=== PATIENT | female | born 1945 | race Caucasian/White ===

== ENCOUNTER 2019-11-09 23:52 | Inpatient (IN) | payer MEDICARE, BC ==
[~2019-11-09] VITALS: Ht 172.7 cm; Wt 75.9 kg
[2019-11-10] VITALS (11 sets, daily range): BP systolic 110–157; BP diastolic 60–84
[2019-11-10] MEDS ORDERED: MONT10TA21 PO (00:35)
[2019-11-10] MEDS ORDERED: OMEP40CA13 PO (00:35)
[2019-11-10] MEDS ORDERED: NIFE10CA PO (00:35)
[2019-11-10] MEDS ORDERED: heparin 10,000 units/1 ML INJ IV PRN (01:25)
[2019-11-10] MEDS: heparin 25,000 UNIT/250ml bag 250 ML IV SCH ×2 (02:08→09:23)
[2019-11-10] MEDS ORDERED: magnesium hydroxide 30ml (MOM) UD suspension PO PRN (02:45)
[2019-11-10] MEDS ORDERED: acetaminophen 325mg tablet PO PRN (02:45)
[2019-11-10] MEDS ORDERED: ondansetron/PF 4mg/2ml inj IV PRN (02:45)
[2019-11-10] MEDS ORDERED: mag hydrox/Alum hydrox/simeth 30ml oral suspension PO PRN (02:45)
[2019-11-10] MEDS ORDERED: metoprolol tartrate 12.5mg (1/2 tablet) PO ONE (02:50)
--- NOTE | 2019-11-10 03:25 | NUR ---
pt arrived to floor with all belongings, pt ambulated from [place] into bed, tele attached, VS stable, pt oriented to floor.
[2019-11-10] MEDS: normal saline 1000ml 1,000 ML IV SCH ×2 (04:31→21:02)
--- NOTE | 2019-11-10 06:00 | NUR ---
Problems reprioritized. Patient report given, questions answered & plan of care reviewed with Olga PRESLEY.
--- NOTE | 2019-11-10 06:04 | NUR ---
Patient in room PCU 3013. I have received report from FERNANDEZ Rangel and had the opportunity to ask questions and assume patient care. Pt resting comfortably at change of shift, heparin gtt running per MD orders.
[2019-11-10 06:06] LABS: ALANINE AMINOTRANSFERASE 37 U/L (12-78); ALBUMIN 4.2 G/DL (3.4-5.0); ALKALINE PHOSPHATASE 74 IU/L (46-116); ANION GAP 9 (8-16); ASPARTATE AMINO TRANSFERASE 24 U/L (10-37); BILIRUBIN,TOTAL 0.6 MG/DL (0.1-1.0); BLOOD UREA NITROGEN 13 MG/DL (7-18); BUN/CREATININE RATIO 18.6 (6.6-38.0); CALCIUM 9.7 MG/DL (8.5-10.1); CHLORIDE 99 MMOL/L (99-107); GLUCOSE 88 MG/DL (70-104); POTASSIUM 3.4 MMOL/L (3.5-5.1); SODIUM 135 MMOL/L (135-145); TOTAL CARBON DIOXIDE 26.9 MMOL/L (24-32); TOTAL PROTEIN 8.5 G/DL (6.4-8.2); eGFR 82 ML/MIN
--- NOTE | 2019-11-10 12:05 | NUR ---
Paged Dr Christina PAGER ID: [phone] MESSAGE: Re: Iliana Valles [id number] Pt is hungry and thirsty, currently NPO, she's had positive trops, is there a plan to have a Rachel or consult with rigger supervisor? Please advise. Thanks Olga Cagle [phone]
--- NOTE | 2019-11-10 13:07 | NUR ---
Called Dr Ackerman's answering service per Dr Christina's request to notify him of pt needing to consulted.
[2019-11-10] MEDS ORDERED: potassium Cl 20 mEq SR tablet PO PRN ×2 (13:15)
[2019-11-10] MEDS ORDERED: potassium CL 10mEq/100ml bag 100 ML IV PRN (13:15)
[2019-11-10] MEDS ORDERED: magnesium Cl slow-release 64mg tablet PO PRN (13:15)
[2019-11-10] MEDS ORDERED: magnesium 4gm in 100ml NS 100 ML IV PRN (13:15)
[2019-11-10] MEDS ORDERED: NIFE90TA44 PO (13:52)
[2019-11-10] MEDS ORDERED: OMEP-50 PO (13:52)
[2019-11-10 14:05] LABS: CHOL/HDL RATIO 2.6 (0.00-4.99); CHOLESTEROL 270 MG/DL (0-200); HDL CHOLESTEROL 105 MG/DL (35-60); LDL CHOLESTEROL 145 MG/DL (50-100); TRIGLYCERIDES 89 MG/DL (20-135)
[2019-11-10] MEDS ORDERED: LIDOcaine/PRILOcaine 5gm cream TP ONE (15:25)
[2019-11-10] MEDS ORDERED: famotidine 20mg tablet PO ONE (15:50)
[2019-11-10] MEDS ORDERED: diphenhydrAMINE 25mg capsule PO ONE (15:50)
[2019-11-10] MEDS ORDERED: iohexol 350 MG/ML 50ML vial IV ONE ×2 (15:54→16:46)
[2019-11-10] MEDS ORDERED: fentaNYL/PF 50MCG/1 ML 2ML syringe ONE (15:54)
[2019-11-10] MEDS ORDERED: verapamil 2.5 mg/ml inj IV ONE (15:54)
[2019-11-10] MEDS ORDERED: iohexol 350MG/ML 100ml bottle IV ONE (15:54)
[2019-11-10] MEDS ORDERED: midazolam 2 mg/2 ml injection ONE (15:54)
[2019-11-10] MEDS ORDERED: heparin 1,000unit/ml 10ml vial 10 ML ONE (15:54)
[2019-11-10] MEDS ORDERED: LIDOcaine 1% (10mg/ml)w/preservative injection 20ml MDV ONE (15:54)
[2019-11-10] MEDS ORDERED: nitroGLYCERIN-Tridil 50MG/D5W 250 ML IV ONE (15:54)
[2019-11-10] MEDS ORDERED: hydrocortisone sod succ/PF 100mg/2ml inj. ONE (16:39)
[2019-11-10] MEDS ORDERED: normal saline 1000ml 1,000 ML IV ONE (17:40)
--- NOTE | 2019-11-10 18:49 | NUR ---
Problems reprioritized. Patient report given, questions answered & plan of care reviewed with FERNANDEZ Reynaga. Pt eating dinner at change of shift. Informed nurse pt came back from heart cath at 1730, 1L NS to finish at 150ml/hr, then switch to NS at 100ml/hr. Radial approach to have air released Q15 mins and to continue post op vitals and radial pulse checks. All pt needs met at this time.
[2019-11-10] MEDS: K and/or MAG REPLACEMENT MC SCH (20:00)
[2019-11-10] MEDS: carVEDilol 3.125mg tablet PO SCH (20:00)
[2019-11-11 03:00] VITALS: BP 114/67
[2019-11-11 05:20] LABS: BASOPHILS % (AUTO) 0.7 % (0-1); EOSINOPHILS % (AUTO) 0.6 % (0-6); HEMATOCRIT 37.4 % (35.0-45.0); HEMOGLOBIN 12.9 g/dl (12.0-16.0); LYMPHOCYTES # (AUTO) 1.9 X10'3 (1.1-4.8); LYMPHOCYTES % (AUTO) 27.6 % (21-51); MEAN CORPUSCULAR HEMOGLOBIN 31.7 PG (27.0-31.0); MEAN CORPUSCULAR HGB CONC 34.6 g/dL (33.0-36.5); MEAN CORPUSCULAR VOLUME 91.6 FL (78-98); MEAN PLATELET VOLUME 8.1 FL (7.4-10.4); MONOCYTES # (AUTO) 0.7 X10'3 (0-0.9); MONOCYTES % (AUTO) 10.5 % (2-12); NEUTROPHILS # (AUTO) 4.1 X10'3 (1.8-7.7); NEUTROPHILS % (AUTO) 60.6 % (42-75); PLATELET COUNT 266 X10'3 (140-440); RED BLOOD COUNT 4.08 X10'6 (4.20-5.60); RED CELL DISTRIBUTION WIDTH 13.4 % (11.5-14.5); WHITE BLOOD COUNT 6.7 X10'3 (4.5-11.0)
[2019-11-11 05:51] LABS: ALANINE AMINOTRANSFERASE 29 U/L (12-78); ALBUMIN 3.3 G/DL (3.4-5.0); ALBUMIN/GLOBULIN RATIO 0.9 (1.1-1.5); ALKALINE PHOSPHATASE 57 IU/L (46-116); ANION GAP 6 (8-16); ASPARTATE AMINO TRANSFERASE 23 U/L (10-37); BILIRUBIN,TOTAL 0.4 MG/DL (0.1-1.0); BLOOD UREA NITROGEN 15 MG/DL (7-18); BUN/CREATININE RATIO 16.7 (6.6-38.0); CALCIUM 9.1 MG/DL (8.5-10.1); CHLORIDE 104 MMOL/L (99-107); CHOL/HDL RATIO 2.7 (0.00-4.99); CHOLESTEROL 233 MG/DL (0-200); GLUCOSE 89 MG/DL (70-104); HDL CHOLESTEROL 86 MG/DL (35-60); LDL CHOLESTEROL 126 MG/DL (50-100); MAGNESIUM 1.7 MG/DL (1.5-2.4); POTASSIUM 3.6 MMOL/L (3.5-5.1); SODIUM 138 MMOL/L (135-145); TOTAL CARBON DIOXIDE 28.3 MMOL/L (24-32); TOTAL PROTEIN 6.9 G/DL (6.4-8.2); TRIGLYCERIDES 93 MG/DL (20-135); eGFR 62 ML/MIN
--- NOTE | 2019-11-11 06:27 | NUR ---
Patient in room PCU 3013A. I have received report from Juhi PRESLEY and had the opportunity to ask questions and assume patient care.
[2019-11-11 06:30] VITALS: BP 118/67
[2019-11-11] MEDS: K and/or MAG REPLACEMENT MC SCH (07:29)
[2019-11-11] MEDS ORDERED: pantoprazole 40mg Tablet.DR PO SCH (07:30)
[2019-11-11] MEDS: carVEDilol 3.125mg tablet PO SCH (07:51)
[2019-11-11] MEDS ORDERED: montelukast 10mg tablet PO SCH (08:00)
[2019-11-11] MEDS ORDERED: losartan 25mg tablet PO SCH (08:00)
[2019-11-11] MEDS ORDERED: NIFEdipine XL 30mg tablet PO SCH (08:00)
[2019-11-11] MEDS: normal saline 1000ml 1,000 ML IV SCH (08:23)
[2019-11-11 11:00] VITALS: BP 95/65
[2019-11-11] MEDS ORDERED: NIFE-33 PO (12:36)
[2019-11-11] MEDS ORDERED: COR3.125T PO (12:36)
[2019-11-11] MEDS ORDERED: SPIR25TA PO (12:36)
[2019-11-11] MEDS ORDERED: LOSA25TA41 PO (12:36)
[2019-11-11] MEDS ORDERED: ATOR20TA66 PO (12:38)
--- NOTE | 2019-11-11 15:58 | NUR ---
Per MD, patient stable for discharge home. New prescriptions faxed to [facility] in [place] per pt pharmacy choice. Discharge packet completed and given to patient, education provided. Patient also informed me that Dr Ackerman instructed her to followup with him in 4 weeks. IV removed with catheter intact and tele monitor returned to [employer]. All belongings sent with patient. Patient escorted to lobby via wheelchair, accompanied by resource RN and driven home by in private vehicle.
[2019-11-12] MEDS ORDERED: spironolactone 25 MG tablet PO SCH (08:30)
== END 2019-11-11 15:07 | disposition home or self-care (01) | DRG 287 ==
LOC: ER 23:53 → PCU 3S 11-10 02:45
PROVIDERS: ADMIT Internal Medicine; ATTEND Internal Medicine
PROC: 4A023N7 Measurement of Cardiac Sampling and Pressure, Left Heart, Percutaneous Approach (ICD-10-PCS; principal; 2019-11-10)
PROC: B2111ZZ Fluoroscopy of Multiple Coronary Arteries using Low Osmolar Contrast (ICD-10-PCS; 2019-11-10)
DX: I51.81 Takotsubo syndrome (principal); E78.5 Hyperlipidemia, unspecified; E87.6 Hypokalemia; I50.9 Heart failure, unspecified; I25.10 Atherosclerotic heart disease of native coronary artery without angina pectoris; I44.7 Left bundle-branch block, unspecified; J45.909 Unspecified asthma, uncomplicated; I73.00 Raynaud's syndrome without gangrene; Z79.899 Other long term (current) drug therapy; Z87.891 Personal history of nicotine dependence; Z88.2 Allergy status to sulfonamides; Z88.8 Allergy status to other drugs, medicaments and biological substances
CPT/HCPCS: 36415; 80053; 80061; 83036; 83735; 84484; 85025; 85730; 87081; 93005; 93306; 93458; 99152; 99153; 99285; A4620; A5120; C1769; C1894; G0378; J1644; J1720; J2001; J2250; J3010; J3490; J7030; Q0163; Q9967